=== PATIENT | female | born 1995 | race Caucasian/White ===

== ENCOUNTER 2018-07-04 17:18 | Emergency (ER) | payer BC ==
[2018-07-04 17:41] VITALS: BMI 30.1
--- NOTE | 2018-07-04 17:58 | PDOC ---
History of Present Illness - General Chief Complaint: Pain, Acute Stated Complaint: PAIN, ACUTE Time Seen by Provider: 07/04/18 17:58 History Source: Patient Exam Limitations: No Limitations - History of Present Illness Initial Comments: 07/04/18 18:15 This is a 23 year old female with a history of repeated urinary tract infections , nephrolithiasis, who presents with dysuria, pelvic pain with accompanied left no radiating flank pain that started yesterday. Patient states that she went to [facility] last night for these symptoms, she was diagnose with UTI and sent home on bactrim. She has taken 2 doses of bactrim so far, with worsening left and pelvic pain, now with chills, nausea, which prompted her ER visit. Patient denies associated fever or vomiting. She has had 4-5 UTI's this year, treated with bactrim. She is sexually active with one partner, does not use condoms. She does endorse pain with intercourse. She is on control. She denies any STD history. 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 PMH: kidney stone, asthma as child PSX: none Social hx: occasional alcohol, denies tobacco, drug NKDA 07/04/18 19:31 07/04/18 19:39 Past History - Past Medical History Allergies/Adverse Reactions: Allergies Allergy/AdvReac Type Severity Reaction Status Date / Time No Known Allergies Allergy Verified 07/04/18 17:36 Home Medications: Ambulatory Orders Doxycycline Hyclate 100 mg PO BID 14 Days #28 tablet 07/04/18 COPD: No - Immunization History Immunization Up to Date: Yes - Suicide/Smoking/Psychosocial Hx Smoking History: Never smoked Have you smoked in the past 12 months: No Information on smoking cessation initiated: No Hx Alcohol Use: No Drug/Substance Use Hx: No Substance Use Type: None Review of Systems - Review of Systems Able to Perform ROS?: Yes Is the patient limited Icelandic proficient: Yes Constitutional: Yes: Chills, Loss of Appetite, Weakness. No: Diaphoresis, Fever Respiratory: No: Cough, Orthopnea, Shortness of Breath, SOB with Exertion, Wheezing Cardiac (ROS): No: Chest Pain, Edema, Irregular Heart Rate, Lightheadedness ABD/GI: Yes: Nausea. No: Abdominal Distended, Abd. Pain w/ defecation, Blood Streaked Bowels, Diarrhea, Difficulty Swallowing, Vomiting : Yes: Burning, Dysuria, Discharge (clear), Flank Pain, Pain, Urgency Neurological: No: Headache, Numbness, Paresthesia *Physical Exam - Vital Signs Last Vital Signs Temp Pulse Resp BP Pulse Ox 98.8 F 93 H 16 137/76 100 07/04/18 17:36 07/04/18 17:36 07/04/18 17:36 07/04/18 17:36 07/04/18 17:36 - Physical Exam General Appearance: Yes: Appropriately Dressed. No: Apparent Distress Respiratory/Chest: positive: Lungs Clear, Normal Breath Sounds Cardiovascular: positive: Regular Rhythm, Regular Rate, S1, S2, Tachycardia Female Pelvic Exam: positive: normal external exam, cervical os closed, adnexal tenderness (bilateral). negative: discharge, lesions, Bartholin mass, vaginal bleeding Gastrointestinal/Abdominal: positive: Normal Bowel Sounds, Flat, Soft. negative : Tender Lymphatic: negative: Adenopathy Musculoskeletal: positive: Other (left sided low back pain to palpation). negative: Vertebral Tenderness Neurologic: positive: Fully Oriented, Alert, Normal Mood/Affect, Motor Strength 5/5 ED Treatment Course - LABORATORY CBC & Chemistry Diagram: 07/04/18 18:45 07/04/18 18:45 Medical Decision Making - Medical Decision Making 07/04/18 19:33 This is a 23 year old female with a history of repeated urinary tract infections , kidney stones, who presents with worsening pelvic pain and left low back pain after being diagnosed with UTI at [facility] yesterday. She is on her second day of bactrim. Differential includes but not limited to UTI, cystitis, pyelonephritis, abscess of ovaries, pelvic inflammaorty disease. Renal stones is less likely due to presentation and location of pain and presentation. #dysuria with pelvic pain -cbc, bmp, UA/UC, bhcg, -GC, chlamydia -renal ultrasound, transvangial ultrasound -will treat for PID empirically -ceftriaxone IM; doxycycline 100mg po 07/04/18 21:23 - test negative -kidney and transvaginal US wnl; negative for acute pyelonephritis, hydronephritis, abscess, endometrium wnl, no acute process identified. -treated with IM ceftriaxone, 1x doxycycline. -doxycycline 100mg bid x 14 days sent to pharmacy -pending GC/Chlamydia results, will treat partner if positive; call back set up to call patient with pending results. -dc home ; instruction to follow up with OB/GUN and primary. *DC/Admit/Observation/Transfer Diagnosis at time of Disposition: PID (acute pelvic inflammatory disease) - Discharge Dispostion Disposition: HOME Condition at time of disposition: Improved Decision to Admit order: No - Referrals - Patient Instructions Printed Discharge Instructions: DI for Pelvic Inflammatory Disease Additional Instructions: Ms. Gonzalez, you have been diagnosed with pelvic inflammatory disease. We have sent a prescription to your pharmacy for another antibiotic, doxycycline, twice a day for 14 days. You will be getting phone call informing you if your partner need top take medication a well. IF you experience any worsening of symptoms, please return to the emergency room . - Post Discharge Activity Forms/Work/School Notes: Back to Work
[2018-07-04] MEDS ORDERED: ONDANSETRON 4 MG/2 ML VIAL IVPB ONE (18:12)
[2018-07-04] MEDS ORDERED: SODIUM CHLORIDE 0.9% 500 ML INFUS.BAG IV ONE (18:13)
[2018-07-04 18:49] LABS: BASO % 0.8 % (0-2.0); EOS % 0.1 % (0-4.5); HEMOGLOBIN 12.8 GM/dL (10.7-15.3); LYMPH % 18.8 % (8-40); MCH 28.9 pg (25.7-33.7); MCHC 33.6 g/dl (32.0-36.0); MEAN CELL VOLUME 85.9 fl (80-96); MEAN PLT VOLUME 8.4 fl (7.5-11.1); MONO % 3.3 % (3.8-10.2); PLATELET COUNT 456 K/MM3 (134-434); RBC 4.42 M/mm3 (3.60-5.2); RDW 13.4 % (11.6-15.6)
--- NOTE | 2018-07-04 19:15 | PDOC ---
Attending Attestation - Resident Resident Name: Minerva Cortes - ED Attending Attestation I have performed the following: I have examined & evaluated the patient, The case was reviewed & discussed with the resident, I agree w/resident's findings & plan, Exceptions are as noted - HPI HPI: 07/04/18 19:09 The patient is a 23-year-old female with past medical history significant for recurrent UTIs and Kidney stones presenting to the emergency department complaining of burning with urination and pelvic pain. Pt states her symptoms started 2 days ago. She was seen at [facility] and started on Bactrim for a UTI. The patient presents today with worsening dysuria and pelvic pain. She has taken 2 tablets of the bactrim so far. Denies F/C. The patient states she is sexually active with one partner, does not use condoms but is on OCPs. Denies vaginal discharge or bleeding, fever, chills, chest pain, shortness of breath, changes in bowel habits, nausea or vomiting. Allergies: NKA Social history: No past or present use of tobacco, alcohol or recreational drug use. Surgical history: None reported. PCP: The patient reports she follows up at [facility]. - Physicial Exam PE: 07/04/18 19:11 GENERAL: Awake, alert, and fully oriented, in no acute distress. HEAD: No signs of trauma EYES: PERRLA, EOMI, sclera anicteric, conjunctiva clear ENT: Auricles normal inspection, hearing grossly normal, nares patent, oropharynx clear without exudates. Moist mucosa NECK: Nontender, no stepoffs, Normal ROM, supple, no lymphadenopathy, JVD, or masses LUNGS: Breath sounds equal, clear to auscultation bilaterally. No wheezes, and no crackles HEART: Regular rate and rhythm, normal S1 and S2, no murmurs, rubs or gallops ABDOMEN: + Suprapubic TTP, + LLQ TTP : + CMT, physiologic white discharge, no bleeding, os closed EXTREMITIES: Normal range of motion, no edema. No clubbing or cyanosis. No cords, erythema, or tenderness NEUROLOGICAL: Cranial nerves II through XII intact. 5/5 strength and sensation in all extremities, Normal speech, normal gait, normal cerebellar function SKIN: Warm, Dry, normal turgor, no rashes or lesions noted. - Medical Decision Making 07/04/18 19:12 23 F with 2 days of suprapubic pain and dysuria despite tx with bactrim. Exam notable for CMT, consistent with PID. Will also evaluate for TOA given L adnexal TTP. Pt also has h/o kidney stone but no CVA tenderness on exam. Will obtain renal US to evaluate for hydro. - Labs - UA, UCx, UPT - TVUS, renal US - Consider CT to r/o stone - IVF, pain control 07/04/18 21:32 Labs wnl UA unremarkable, no blood to suggest kidney stone, will [facility] TVUS and renal US unremarkable Pt reassessed - pain is well controlled. Received ceftriaxone and doxy for PID Pt is well appearing, with normal vitals. Clinically stable for DC at this time. I discussed the physical exam findings, ancillary test results and final diagnoses with the patient. I answered all of the patient's questions. The patient was satisfied with the care received and felt comfortable with the discharge plan and treatment plan. The patient agrees to follow up with the primary care physician within 24-72 hours.
[2018-07-04 19:45] LABS: ANION GAP 13 MMOL/L (8-16); BLOOD UREA NITROGEN 8 mg/dL (7-18); CALCIUM 9.3 mg/dL (8.5-10.1); CHLORIDE 101 mmol/L (98-107); CO2 22 mmol/L (22-28); CREATININE 0.8 mg/dL (0.55-1.3); GLUCOSE,RANDOM 84 mg/dL (74-106); SODIUM 136 mmol/L (136-145)
[2018-07-04] MEDS ORDERED: DOXYCYCLINE HYCLATE 100 MG CAPSULE PO ONE ×2 (21:21→21:27)
[2018-07-04 21:26] LABS: URINE APPEARANCE CLOUDY; URINE BILIRUBIN NEGATIVE (<2.0 mg/dL); URINE COLOR YELLOW; URINE GLUCOSE (UA) NEGATIVE (NEGATIVE); URINE KETONE TRACE (NEGATIVE); URINE LEUK ESTERASE NEGATIVE (NEGATIVE); URINE NITRITE NEGATIVE (NEGATIVE); URINE PROTEIN NEGATIVE (NEGATIVE); URINE UROBILINOGEN NEGATIVE mg/dL (0.2-1.0)
[2018-07-04 21:27] LABS: HCG,QUALITATIVE URINE Negative
[2018-07-04] MEDS ORDERED: CEFTRIAXONE 1 GM/50 ML BAG ONE (21:27)
[2018-07-04 22:27] VITALS: BP 117/58; PULSE 78; TEMP 98.6
== END 2018-07-04 22:27 | disposition home or self-care (01) ==
LOC: JER 17:18
PROC: 3E02329 Introduction of Other Anti-infective into Muscle, Percutaneous Approach (ICD-10-PCS; principal; 2018-07-04)
PROC: 3E033GC Introduction of Other Therapeutic Substance into Peripheral Vein, Percutaneous Approach (ICD-10-PCS; 2018-07-04)
DX: N73.0 Acute parametritis and pelvic cellulitis (principal); M54.5 Low back pain
CPT/HCPCS: 36415; 76775-TC; 76830-TC; 80048; 81003; 84703; 85025; 87086; 87491; 87591; 99284-25